=== PATIENT | male | born 1970 | race Caucasian/White ===

== ENCOUNTER 2018-11-06 13:08 | Emergency (ER) | payer MEDICAID ==
[~2018-11-06] VITALS: Ht 180.3 cm; Wt 92.1 kg
[~2018-11-06 13:08] MED LIST: ACT15 PO; DEPAKOTE500 MG PO; JANUVIA100 M1 PO; LAC30L PO; METFORMIN HCL1000 MG PO; SEROQUEL25 MG PO; VICTOZA6 MG/M1; ZESTRIL20 MG PO
[2018-11-06 13:16] VITALS: BP 156/109; Ht 180.3 cm; Wt 92.1 kg
== END 2018-11-06 15:18 | disposition left against medical advice (07) ==
LOC: ED 13:08
DX: Z53.21 Procedure and treatment not carried out due to patient leaving prior to being seen by health care provider (principal)

== ENCOUNTER 2019-07-12 12:46 | Inpatient (IN) | payer MEDICAID ==
[~2019-07-12] VITALS: Ht 180.3 cm; Wt 101.9 kg
--- NOTE | 2019-07-12 12:58 | NUR ---
PT BIBA [facility] HOME, STATES HE FEELS WEAKER THAN NORMAL,ADMITS TO HAVING LIVER CIRROSIS, SECONDARY TO FATTY LIVER, TAKING LOTS OF MEDS, PSYCHMEDS. STATES HENORMALLY TAKES LACTULOSE BUT HE STOPPED TAKING THEM ORDERED SECONDARY TO ADVERSE SIDE EFFCTS. RESP EVENA ND UNLABORED, IN NAD. DENIES ANY PAIN. ABD LARGE, SOFT, NON TENDER WITH PALAPTION. DENIES EVER BEING TAPPED. DENIES DYSURIA, NO N/V/D.
[2019-07-12 14:18] LABS: BASOPHIL % 0.5 % (0-2); RED CELL DISTRIBUTION WIDTH 14.5 % (11.5-14.5)
[2019-07-12 14:22] LABS: PLATELET COUNT 95 x10^3mcL (130-400)
[2019-07-12 14:30] LABS: CALCIUM 7.9 mg/dL (8.5-10.1); CARBON DIOXIDE 24.3 mmol/L (21-32); CHLORIDE SERUM 111 mmol/L (98-107); GFR1 > 60 mL/min; GLUCOSE SERUM 235 mg/dL (74-106); POTASSIUM SERUM 3.8 mmol/L (3.5-5.1); SODIUM SERUM 142 mmol/L (136-145)
[2019-07-12 14:43] LABS: ALKALINE PHOSPHATASE 190 U/L (46-116); ALT/SGPT 80 U/L (16-63); AST/SGOT 60 U/L (15-37); BILIRUBIN TOTAL 1.4 mg/dL (0.20-1.00); TOTAL PROTEIN, SERUM 7.2 g/dL (6.4-8.2)
[2019-07-12 14:45] LABS: ALBUMIN 2.5 g/dL (3.4-5.0)
[2019-07-12 14:53] LABS: AMPHETAMINE QUAL UR POSITIVE (See below)
--- NOTE | 2019-07-12 16:16 | NUR ---
DR BURTON SPOKE WITH PT'S MOM REGARDING TEST RESULTS AND POC
--- NOTE | 2019-07-12 17:31 | NUR ---
laying in bed, no signs of distress noted at this time.
[2019-07-12] MEDS ORDERED: XANAX XR1 M1 PO (18:46)
[2019-07-12] MEDS ORDERED: TOPROL XL25 MG PO (18:47)
[2019-07-12] MEDS ORDERED: GLIPIZIDE5 M2 (18:48)
--- NOTE | 2019-07-12 19:22 | NUR ---
REPORT RECIEVED FROM RN. RESUMED CARE OF PT. PT DENIES PAIN @ THIS TIME. PT STATES HAVING LIVER CIRROHSIS AND THAT HIS AMMONIA LEVELS ARE HIGH. ABD SOFT AND ROUND. NONTENDER TO PALPATION. BS ACTIVE X4Q. NO OTHER ACUTE CHANGES.
--- NOTE | 2019-07-12 19:48 | NUR ---
REPORT CALLED TO JOAQUIN ALMANZA FOR TELE BED 212B. NURSING UPDATES POC.
[2019-07-12 19:51] LABS: CHOLESTEROL/HDL RATIO 2.6
[2019-07-12 19:57] LABS: T3 TOTAL 1.26 ng/mL
--- NOTE | 2019-07-12 20:12 | NUR ---
PT TRANSPORTED TO TELE UNIT.
--- NOTE | 2019-07-12 20:17 | NUR ---
RECEIVED PT FROM ED VIA LING, PT'S AT BEDSIDE AND STATED THAT SHE BROUGHT THE PT IN TO THE HOSPITAL FOR BEING SLOW TO RESPOND XMONTHS. PT IS AAOX4, ABLE TO FOLLOW COMMANDS, SPEECH IS SLOW, HAND MINCEMEAT MAKER ARE EQUAL, PUPILS ARE SLUGGISH. NO SOB NOTED, LUNG SOUNDS CTA, O2 SAT=99%, RA. DENIES CHEST PAIN/PRESSURE, SR ON THE MONITOR. DENIES ABDOMINAL DISCOMFORT. BOWEL SOUNDS ACTIVE. VOIDS. W/ BLANCHABLE ERYTHEMA ON THE UPPER CHEST, DARRYL, DENIES ITCHINESS. IV SITE ON THE RUE GAUGE 22 IS PATENT AND INTACT. PADDED SIDE RAILS UPX2. CALL LIGHT ON REACH. HOB ELEVATED AT 30 DEG. PT'S AND DAUGHTER AT BEDSIDE. ENDORSED TO PRIMARY NURSE JOAQUIN FOR CONTINUITY OF CARE
[2019-07-12 20:32] VITALS: BP 144/99
[2019-07-12 20:38] LABS: FREE T4 1.12 ng/dL (0.76-1.46); FREE THYROXINE INDEX 2.5 ug/dL (1.4-4.5); T4(THYROXINE) 7.4 ug/dL (4.7-13.3)
[2019-07-12 20:41] VITALS: Ht 180.3 cm; Wt 101.9 kg
--- NOTE | 2019-07-12 21:30 | NUR ---
REPORT RECEIVED FROM THA ALMANZA FOR CONTINUATION OF CARE. PATIENT AWAKE, ALERT, ORIENTED X3 IN BED. SLOW TO RESPOND. RESPIRATION EVEN AND UNLABORED, ON ROOM AIR. IV SITE TO RIGHT UPPER ARM INTACT. DENIES DISCOMFORT/PAIN AT THIS TIME. LATEST BLOOD SUGAR 121 MG/DL. PLACED CALL LIGHT WITHIN REACH. WILL CONTINUE TO MONITOR.
[2019-07-13 05:33] LABS: BASOPHIL % 0.5 % (0-2)
[2019-07-13 05:35] LABS: PLATELET COUNT 91 x10^3mcL (130-400); RED CELL DISTRIBUTION WIDTH 14.7 % (11.5-14.5)
--- NOTE | 2019-07-13 06:10 | NUR ---
PATIENT RESTING IN BED. RESPIRATION EVEN AND UNLABORED, ON ROOM AIR. DENIES DISCOMFORT/PAIN AT THIS TIME. IV SITE NO SIGN OF INFILTRATION. MAINTAINED ON NPO. ASSISTED WITH NEEDS. SAFETY OBSERVED. PLACED BED IN THE LOWEST POSITION. PLACED CALL LIGHT WITHIN REACH AT ALL TIMES.
[2019-07-13 06:20] LABS: CALCIUM 7.6 mg/dL (8.5-10.1); CARBON DIOXIDE 24.9 mmol/L (21-32); CHLORIDE SERUM 114 mmol/L (98-107); CREATININE SERUM 0.8 mg/dL (0.7-1.3); GFR1 > 60 mL/min; GLUCOSE SERUM 215 mg/dL (74-106); POTASSIUM SERUM 3.6 mmol/L (3.5-5.1); SODIUM SERUM 144 mmol/L (136-145)
[2019-07-13 06:31] VITALS: BP 133/71
--- NOTE | 2019-07-13 07:29 | NUR ---
A+OX4, SZ PRECAUTIONS, SLOW TO RESPOND, TELE 5, PULSES MODERATE AND EQUAL, NO EDEMA NOTED, LUNG SOUUNDS CTA, BOWEL SOUNDS ACTIVE, VOIDING FREELY, GENERALIZED WEAKNESS, TREMORS AT TIMES, ERYTHEMA TO CHEST DARRYL, IV IN RUE WITH NS @ 100 ML, SITE WNL. PT STATES HE IS HUNGRY AND WANTS TO EAT.
[2019-07-13 07:38] VITALS: BP 127/78
--- NOTE | 2019-07-13 09:17 | NUR ---
PT RESTING IN BED, DENIES PAIN, NO RESPRIATORY DISTRESS NOTED, PT AND FAMILY ASKING WHEN PT CAN EAT, WILL ASK RESIDENT DURING ROUNDS, CALL LIGHT WITHIN REACH.
--- NOTE | 2019-07-13 11:26 | NUR ---
PT AMBULATING TO BATHROOM AND BACK TO BED INDEPENDENTLY, PT NOW SITTING AT EDGE OF BED, NO RESPIRATORY DISTRESS NOTED, CALL LIGHT WITHIN REACH.
--- NOTE | 2019-07-13 13:11 | NUR ---
PT RESTING IN BED, NO RESPIRATORY DISTRESS NOTED, DENIES PAIN, CALL LIGHT WITHIN REACH.
[2019-07-13 13:25] VITALS: BP 123/75
--- NOTE | 2019-07-13 15:06 | NUR ---
PT RESTING IN BED, NO RESPIRATORY DISTRESS NOTED, DENIES PAIN, PT STATES HE HAD X1 EPISODE OF DIARRHEA AFTER TAKING LACTULOSE, FRIEND AT BEDSIDE, CALL LIGHT WITHIN REACH.
[2019-07-13 16:16] VITALS: BP 134/84
--- NOTE | 2019-07-13 16:58 | NUR ---
PT RESTING IN BED, NO RESPIRATORY DISTRESS NOTED, DENIES PAIN, CALL LIGHT WITHIN REACH.
--- NOTE | 2019-07-13 18:42 | NUR ---
PT RESTING IN BED WITH BOTH EYES CLOSED, NO RESPRIATORY DISTRESS NOTED, DENIES PAIN, CALL LIGHT WITHIN REACH.
--- NOTE | 2019-07-13 19:22 | NUR ---
ENDORSED CARE TO BIBIANA ALMANZA.
--- NOTE | 2019-07-13 19:33 | NUR ---
AWAKE AND ALERT, ORIENTED TO NAME, PLACE, TIME AND SITUATION. SPEECH CLEAR AND APPROPRIATE. ABLE TO MAKE NEEDS KNOWN, OBEYS COMMANDS. AMBULATING IN ROOM, GAIT STEADY. SALINE LOCK TO RIGHT UPPER ARM. BREATHING EVEN AND UNLABORED ON ROOM AIR. DISCUSSED PLAN OF CARE TONIGHT INCLUDING NEED TO ADMINISTER LACTULOSE. VERBALIZED AGREEMENT WITH PLAN OF CARE.
[2019-07-13 20:22] VITALS: BP 138/83
--- NOTE | 2019-07-13 20:40 | NUR ---
DUE MEDICATIONS ADMINISTERED, ABLE TO SWALLOW PO MEDS WITHOUT DIFFICULTY.
--- NOTE | 2019-07-13 21:48 | NUR ---
EYES CLOSED, BREATHING EVEN AND UNLABORED ON ROOM AIR. SIDE RAILS REMAIN PADDED, HOB KEPT ELEVATED 30 DEG. CALL LIGHT WITHIN EASY REACH.
--- NOTE | 2019-07-14 02:12 | NUR ---
EYES CLOSED, BREATHING EVEN AND UNLABORED, HOB KEPT ELEVATED 30 DEG. CALL LIGHT WITHIN EASY REACH.
[2019-07-14 05:13] VITALS: BP 112/68
[2019-07-14 06:50] LABS: CALCIUM 7.7 mg/dL (8.5-10.1); CARBON DIOXIDE 21.9 mmol/L (21-32); CHLORIDE SERUM 113 mmol/L (98-107); CREATININE SERUM 0.7 mg/dL (0.7-1.3); GFR1 > 60 mL/min; GLUCOSE SERUM 122 mg/dL (74-106); MAGNESIUM 1.6 mg/dL (1.8-2.4); PHOSPHOROUS 4.6 mg/dL (2.5-4.9); POTASSIUM SERUM 3.6 mmol/L (3.5-5.1); SODIUM SERUM 144 mmol/L (136-145)
--- NOTE | 2019-07-14 07:06 | NUR ---
EYES CLOSED, BREATHING EVEN AND UNLABORED ON ROOM AIR. SLEPT THROUGH MOST OF SHIFT. EASILY AWAKENED. COOPERATIVE WITH CARE. SALINE LOCK TO RIGHT UPPER ARM FREE FROM ERYTHEMA OR SWELLING. ENDORSED TO NURSE CASTILLO
[2019-07-14 07:07] LABS: BASOPHIL % 0.6 % (0-2); RED CELL DISTRIBUTION WIDTH 13.8 % (11.5-14.5)
[2019-07-14 07:17] LABS: PLATELET COUNT 93 x10^3mcL (130-400)
--- NOTE | 2019-07-14 07:25 | NUR ---
RECEIVED PATIENT FROM ARCHIE SWAN. PATIENT IN BED, NO COMPLAINTS AT THIS TIME. SPOKE W PATIENT ABOUT PLAN OF CARE TODAY AND PATIENT VERBALIZES UNDERSTANDING. WILL CONTINUE TO MONITOR AND AWAIT CARE TEAM TO UPDATE ON PATIENT PLAN. CALL LIGHT IN REACH AT THIS TIME.
[2019-07-14 07:41] VITALS: BP 130/77
--- NOTE | 2019-07-14 09:18 | NUR ---
AUTOMOBILE MECHANIC ASSISTANT TARSHA IN TO SPEAK WITH PATIENT. STATES THAT PATIENT IS CLEARED TO GO HOME TODAY. PATIENT AGREES, AM MEDICATIONS GIVEN. PATIENT AGREES TO AFTERNOON DISCHARGE. WILL AWAIT DISCHARGE ORDERS AND DISCHARGE LATER. NO COMPLAINTS AT PAIN AT THIS TIME, CALL LIGHT IN REACH.
[2019-07-14 10:16] VITALS: BP 130/77
--- NOTE | 2019-07-14 11:31 | NUR ---
DISCHARGE INSTRUCTIONS GIVEN AND EXPLAINED TO PATIENT. ALL QUESTIONS ANSWERED, PATIENT AWARE TO FU WITH PCP WITHIN 2-3. SIGNATURES OBTAINED. CONSTRUCTION PROJECT COORDINATOR RETURNED TO [facility], IV CATHETER REMOVED AND INTACT. PATIENT WITH BELONGINGS ESCORTED DOWNSTAIRS, AMBULATORY, Dan[facility] EISENBERG.
[2019-07-14] MEDS ORDERED: LACTULOSE10 GM/152 PO (11:48)
--- NOTE | 2019-07-14 11:57 | NUR ---
PATIENT AND PATIENT DOWNSTAIRS IN THE LOBBY. WANTED TO RETURN TO FLOOR AND HAS FURTHER QUESTIONS ABOUT PATIENT AND PATIENT DISCHARGE. ALL NEW QUESTIONS ANSWERED AT THIS TIME. REINFORCED TO PATIENT AND TO FOLLOW UP WITH PCP WITHIN 2-3 DAYS AND FOR PATIENT COMPLIANCE OF PO LACTULOSE. NEW PRESCRIPTION OF PO LACTULOSE WRITTEN BY SYED WILLINGHAM AND GIVEN TO PATIENT . PATIENT AND WITH NEW PRESCRIPTION ESCORTED DOWN TO [facility] Danilo SHAHID
== END 2019-07-14 11:29 | disposition home or self-care (01) | DRG 280 ==
LOC: ED 12:46 → DU 18:36
PROVIDERS: Emergency Medicine; ADMIT Internal Medicine
DX: K70.30 Alcoholic cirrhosis of liver without ascites (principal); E43 Unspecified severe protein-calorie malnutrition; D61.818 Other pancytopenia; E11.65 Type 2 diabetes mellitus with hyperglycemia; F20.9 Schizophrenia, unspecified; D68.4 Acquired coagulation factor deficiency; R74.0 Nonspecific elevation of levels of transaminase and lactic acid dehydrogenase [LDH]; I10 Essential (primary) hypertension; K72.00 Acute and subacute hepatic failure without coma; F15.10 Other stimulant abuse, uncomplicated; F19.10 Other psychoactive substance abuse, uncomplicated; Z79.84 Long term (current) use of oral hypoglycemic drugs; Z91.19 Patient's noncompliance with other medical treatment and regimen
CPT/HCPCS: 82962; 83880; 84439; G0378; G0480; J1815; J3475; J7030; Q0092

== ENCOUNTER 2020-01-17 22:25 | Emergency (ER) | payer MEDICAID ==
[~2020-01-17] VITALS: Ht 180.3 cm; Wt 87.5 kg
[~2020-01-17 22:25] MED LIST changes: +GLIPIZIDE5 M2; +LACTULOSE10 GM/152 PO; +TOPROL XL25 MG PO; +XANAX XR1 M1 PO
[2020-01-17 22:35] VITALS: Ht 180.3 cm; Wt 87.5 kg
[2020-01-17 23:58] LABS: BASOPHIL % 0.3 % (0-2)
[2020-01-18 00:01] LABS: PLATELET COUNT 78 x10^3mcL (130-400); RED CELL DISTRIBUTION WIDTH 15.1 % (11.5-14.5)
[2020-01-18 00:19] LABS: ALBUMIN 2.8 g/dL (3.4-5.0); ALKALINE PHOSPHATASE 386 U/L (46-116); ALT/SGPT 113 U/L (16-63); AST/SGOT 71 U/L (15-37); BILIRUBIN TOTAL 1.4 mg/dL (0.20-1.00); CALCIUM 8.6 mg/dL (8.5-10.1); CARBON DIOXIDE 24.8 mmol/L (21-32); CHLORIDE SERUM 102 mmol/L (98-107); CREATININE SERUM 0.9 mg/dL (0.7-1.3); GFR1 > 60 mL/min; POTASSIUM SERUM 3.8 mmol/L (3.5-5.1); SODIUM SERUM 135 mmol/L (136-145); TOTAL PROTEIN, SERUM 7.7 g/dL (6.4-8.2)
[2020-01-18 00:21] LABS: GLUCOSE SERUM 479 mg/dL (74-106)
[2020-01-18 01:46] VITALS: BP 121/67
== END 2020-01-18 01:10 | disposition home or self-care (01) ==
LOC: ED 22:25
PROVIDERS: Emergency Medicine
DX: E11.65 Type 2 diabetes mellitus with hyperglycemia (principal); I10 Essential (primary) hypertension; F17.298 Nicotine dependence, other tobacco product, with other nicotine-induced disorders
CPT/HCPCS: 82962; 99406; J1815; J7030; Q0092

== ENCOUNTER 2020-05-24 22:09 | Emergency (ER) | payer OTHER ==
[~2020-05-24] VITALS: Ht 180.3 cm; Wt 97.3 kg
[2020-05-24 22:17] VITALS: BP 162/101; Ht 180.3 cm; Wt 97.3 kg
== END 2020-05-25 03:55 | disposition left against medical advice (07) ==
LOC: ED 22:09
DX: Z53.21 Procedure and treatment not carried out due to patient leaving prior to being seen by health care provider (principal)

== ENCOUNTER 2020-08-05 22:13 | Emergency (ER) | payer OTHER ==
[~2020-08-05] VITALS: Ht 180.3 cm; Wt 95.3 kg
[2020-08-05 22:27] VITALS: Ht 180.3 cm; Wt 95.3 kg
[2020-08-05 23:12] LABS: BASOPHIL % 0.9 % (0-2)
[2020-08-05 23:25] LABS: PLATELET COUNT 100 x10^3mcL (130-400); RED CELL DISTRIBUTION WIDTH 15.8 % (11.5-14.5)
[2020-08-05 23:40] LABS: CALCIUM 8.2 mg/dL (8.5-10.1); CARBON DIOXIDE 24.5 mmol/L (21-32); CHLORIDE SERUM 106 mmol/L (98-107); CREATININE SERUM 0.8 mg/dL (0.7-1.3); GFR1 > 60 mL/min; GLUCOSE SERUM 164 mg/dL (74-106); POTASSIUM SERUM 3.4 mmol/L (3.5-5.1); SODIUM SERUM 138 mmol/L (136-145)
[2020-08-05 23:46] LABS: ALBUMIN 3.1 g/dL (3.4-5.0); ALKALINE PHOSPHATASE 165 U/L (46-116); ALT/SGPT 42 U/L (16-63); AST/SGOT 54 U/L (15-37); BILIRUBIN TOTAL 1.42 mg/dL (0.20-1.00); MAGNESIUM 1.9 mg/dL (1.8-2.4); PHOSPHOROUS 3.7 mg/dL (2.5-4.9); TOTAL PROTEIN, SERUM 7.8 g/dL (6.4-8.2)
[2020-08-06 00:19] VITALS: BP 152/94
== END 2020-08-06 00:19 | disposition home or self-care (01) ==
LOC: ED 22:13
PROVIDERS: Emergency Medicine
DX: K72.90 Hepatic failure, unspecified without coma (principal); F41.9 Anxiety disorder, unspecified; I10 Essential (primary) hypertension; E11.9 Type 2 diabetes mellitus without complications
CPT/HCPCS: 82962; Q0092

== ENCOUNTER 2020-09-12 22:55 | Emergency (ER) | payer MEDICAID ==
[~2020-09-12] VITALS: Ht 180.3 cm; Wt 93.9 kg
[2020-09-12 23:03] VITALS: Ht 180.3 cm; Wt 93.9 kg
[2020-09-12 23:42] LABS: BASOPHIL % 0.7 % (0-2); RED CELL DISTRIBUTION WIDTH 14.4 % (11.5-14.5)
[2020-09-12 23:44] LABS: PLATELET COUNT 93 x10^3mcL (130-400)
[2020-09-13 00:01] LABS: CALCIUM 8.4 mg/dL (8.5-10.1); CHLORIDE SERUM 108 mmol/L (98-107); CREATININE SERUM 0.8 mg/dL (0.7-1.3); GFR1 > 60 mL/min; GLUCOSE SERUM 113 mg/dL (74-106); POTASSIUM SERUM 3.1 mmol/L (3.5-5.1); SODIUM SERUM 140 mmol/L (136-145)
[2020-09-13 00:04] LABS: ALKALINE PHOSPHATASE 187 U/L (46-116); ALT/SGPT 41 U/L (16-63); AMYLASE 61 U/L (25-115); AST/SGOT 34 U/L (15-37); BILIRUBIN TOTAL 1.4 mg/dL (0.20-1.00); LIPASE 204 IU/L (73-393); TOTAL PROTEIN, SERUM 7.2 g/dL (6.4-8.2)
[2020-09-13 01:24] VITALS: BP 146/98
== END 2020-09-13 01:24 | disposition home or self-care (01) ==
LOC: ED 22:55
PROVIDERS: Emergency Medicine
DX: K74.60 Unspecified cirrhosis of liver (principal); E87.6 Hypokalemia; F15.10 Other stimulant abuse, uncomplicated
CPT/HCPCS: G0480; Q0162